=== PATIENT | female | born 1995 | race Two or more races ===

== ENCOUNTER 2023-12-17 19:24 | Emergency (ER) | payer OTHER ==
[~2023-12-17] VITALS: Ht 172.7 cm; Wt 98.0 kg
[2023-12-17] MEDS ORDERED: SYNTHROID50 MCG PO (20:07)
[2023-12-17] MEDS ORDERED: WEGOVY1 MG/0.5 M SUBCUTANEO (20:08)
[2023-12-17] MEDS ORDERED: KETOROLAC TROMETHAMINE 30 MG VIAL IM STA (20:26)
== END 2023-12-17 22:23 | disposition home or self-care (01) ==
LOC: ER 19:25
DX: M25.571 Pain in right ankle and joints of right foot (principal)